=== PATIENT | female | born 1990 | race Caucasian/White ===

== ENCOUNTER 2022-10-29 13:19 | Emergency (ER) | payer MEDICAID, SELFPAY ==
--- NOTE | ~2022-10-29 | US_ITS ---
EXAMINATION: US VENOUS ULTRASOUND WITH DOPPLER LOWER EXTREMITY, RIGHT CLINICAL INFORMATION: Pain COMPARISON: None available. TECHNIQUE: Ultrasound of the deep veins is performed from the hip to the calf with compression sonography and color and pulse Doppler assessment. Spectral analysis with color-flow imaging is performed. FINDINGS: There is normal venous compression and respiratory variation and augmented flow. The visualized common femoral vein, superficial femoral vein, profunda femoral vein, popliteal vein, and the trifurcation region shows no evidence of deep venous thrombosis. There is no significant popliteal fossa cyst. US/US venous duplex LE RT IMPRESSION: No DVT demonstrated in the right lower extremity.
[2022-10-29 14:03] VITALS: BP 149/79; PULSE 86; RESP 18; TEMP 36.7; O2SAT 99; BMI 40.6
--- NOTE | 2022-10-29 14:36 | ED_ITS ---
HPI - General Adult General Chief complaint: Extremity Problem Stated complaint: r knee pain no inj Time Seen by Provider: 10/29/22 14:59 History of Present Illness HPI narrative: Patient complains of right knee pain for the last 2 weeks without known injury, she is 8 months , she denies any shortness of breath, no chest pain no abdominal pain no pelvic pain no vaginal bleeding no dysuria She went to urgent care and they found there was some posterior tenderness in t he back of the knee in the back of the calf and Center here for an ultrasound to rule out DVT Related Data Allergies Allergy/AdvReac Type Severity Reaction Status Date / Time No Known Allergies Allergy Unknown Unverified 02/05/20 16:17 [facility] Past Medical History Source: nursing notes reviewed Social History Social History Alcohol intake: never Smoked in Last 30 Days: No Use of substances other than those prescribed or required for medical reasons: No Advance Directives: No Advance Directives Information Provided: No Physical Exam ED Vital Signs: Vital Signs - 24 hr 10/29/22 14:03 10/29/22 17:44 Temperature 98.0 F Pulse Rate 86 80 Respiratory Rate 18 16 Blood Pressure 149/79 H 147/83 H Pulse Oximetry 99 96 Oxygen Delivery Method Room Air Room Air BMI result Body Mass Index 40.6 General appearance comfortable relaxed no distress Head is normocephalic atraumatic Neck is supple Respiratory no distress The chest is clear to auscultation bilateral no pleuritic pain with deep breath no chest wall tenderness Heart no murmur Abdomen is soft nontender, gravid Extremities full range of motion x4 The right leg had tenderness both anterior and posterior knee, skin was otherwise normal, the knee flexes to well past 90 degrees and extends to 180, there was no redness or warmth no rash no evidence of cellulitis or abscess no knee effusion, joint is not red or warm, patient ambulates with a mild limp, neurovascular intact distal with good pulse and color Other extremities normal Course Course Course Narrative: RME: 32 yold 32 weeks sent from urgent CARE for right psoterior knee pain rule out DVT. no abdominal pain, vaginal bleeding, chest pain, or shortness of breath. Ultrasond of Right ordered. no trauma ot knee Ultrasound of right lower leg was negative with no DVT no acute findings, physical exam did not show any evidence of cellulitis, circulation was good with good pulses good color, there was some tenderness around the knee anterior and posterior, and patient walks with a mild limp She had no complaints of shortness of breath chest pain abdominal pain or bleeding and she was discharged from the department Discharge Plan Discharge Clinical Impression: Arthralgia of knee, right Patient Disposition: Home, Self-Care Additional Instructions: Ultrasound was negative no sign of blood clot For pain in her knee it is okay to take a limited amount of Tylenol but no Motrin If pain persists after her you can follow with orthopedist If leg pain persists or gets worse to may need a repeat ultrasound is a return to the ER any time and follow with your doctor At this time there is no sign of infection or blood clot Referrals: Dillon Mar MD [Physician] - (Right knee pain) Stand Alone Forms: Work/School Release Interventions: ED Discharge Assessment Last Done: 10/29/22 17:45 Discharge Date/Time: 10/29/22 17:46
[2022-10-29 17:44] VITALS: BP 147/83; PULSE 80; RESP 16; O2SAT 96
== END 2022-10-29 17:46 | disposition home or self-care (01) ==
PROVIDERS: Emergency Provider Student in an Organized Health Care Education/Training Program; PCP Internal Medicine
DX: M25.561 Pain in right knee (principal); R60.0 Localized edema
CPT/HCPCS: 93971; 99284